=== PATIENT | male | born 2000 | race Hispanic/Latino ===

== ENCOUNTER 2025-05-14 03:55 | Emergency (ER) | payer SELFPAY ==
[~2025-05-14] VITALS: Ht 170.2 cm; Wt 106.3 kg
[2025-05-14 05:22] LABS: NUCLEATED RED BLOOD CELLS 0.0 % (0.0-0.19); PLATELET COUNT (AUTO) 237.0 K/uL (130-400); RED BLOOD CELL COUNT(AUTO) 5.16 MIL/uL (4.50-6.20); RED CELL DISTRIBUTION WIDTH 13.5 % (11.0-15.5); WHITE BLOOD COUNT (AUTO) 9.3 K/uL (4.8-10.8)
--- NOTE | 2025-05-14 05:31 | ERN ---
ED Note History of Present Illness Stated Complaint: LEFT SIDED ABDOMINAL PAIN Chief Complaint: Abdominal Pain Time Seen by MD: 04:11 Dictation: This is a 24-year-old male who presented to the emergency room with complaints of sudden onset of left-sided abdominal pain that started around 3:00 a.m.. Stated that he never felt this kind of a pain and initially it felt like a severe cramping pain. He denied eating any unusual food today. No other family members are sick. No nausea vomitings diarrhea hematemesis or melena. He had a bowel movement today and denied any history of constipation. He denied any fever chills or rigors no dysuria or hematuria. The pain is mostly in the left flank to lower quadrant area Temperature 97.7 pulse 77 respirations 16 blood pressure 121/82 with a pulse oximetry of 95% on room air Allergies: Coded Allergies: No Known Allergies (Unverified Allergy, Unknown, 05/14/25) Past Medical History Past Medical History: No Pertinent History Surgical History: None Family History: Negative Social History: Negative RN Note Reviewed/Agreed w/PFSH: Yes Review of System Dictation Constitutional: Negative for fever,chills, and weight loss Eyes: Negative for injury, pain,redness, and discharge ENT: Negative for injury,pain or swelling Cardiovascular: Negative for chest pain, palpitations, and edema Respiratory: Negative for shortness of breath, cough, and wheezing, Abdomen/GI: Positive for left lower quadrant abdominal pain, denied any nausea, vomiting, diarrhea, and constipation Back: Negative for injury and pain : Negative for injury, bleeding and discharge MS/Extremity: Negative for injury and deformity Skin: Negative for rash, and discoloration Neuro: Negative for headache, weakness, numbness, tingling, and seizure Psych: Negative for suicide ideation, homicidal ideation, and hallucinations Initial Vital Sign VS Vital Signs Date Time Temp Pulse Resp B/P (MAP) Pulse Ox O2 Delivery O2 Flow Rate FiO2 05/14/25 03:56 97.7 77 16 121/82 95 Room Air 0 05/14/25 04:46 21 Physical Exam Dictation General: awake, alert, NAD obese me Head/Face: Normocephalic, atraumatic Eyes: PERRL, EOMI, vision at baseline ENT: oral cavity clear, TMs clear, no signs of infection Neck: Trachea midline, supple, no nuchal rigidity Cardiovascular: RRR, normal S1/S2, No MRGs, no JVD Respiratory: CTAB, no respiratory distress, No rales or wheezes Abdomen: Soft, non-tender, non-distended, normal bowel sounds, no guarding or rebound. Skin: Warm, dry, normal turgor, no rash MS/Extremity: Pulses equal, no cyanosis, neurovascular intact, FROM Neuro: COAx4, GCS 15, strength 5/5, CN 2-12 intact, normal cerebellar exam, normal gait, Psych: Normal behavior, mood, and affect normal Extremities-trace edema without any palpable cords, Homans sign is negative Results (Laboratory/Radiology) Laboratory/Radiology Laboratory Tests Test 05/14/25 05:02 White Blood Count 9.3 K/uL (4.8-10.8) Red Blood Count 5.16 MIL/uL (4.50-6.20) Hemoglobin 15.4 g/dL (14.0-18.0) Hematocrit 45.8 % (42-54) Mean Corpuscular Volume 88.8 fL (79-99) Mean Corpuscular Hemoglobin 29.8 pg (27.0-33.0) Mean Corpuscular Hemoglobin Concent 33.6 g/dL (32.0-36.0) Red Cell Distribution Width 13.5 % (11.0-15.5) Platelet Count 237 K/uL (130-400) Mean Platelet Volume 10.8 fL (7.5-10.5) H Nucleated Red Blood Cells 0.0 % (0.0-0.19) Sodium Level 140 mmol/L (136-145) Potassium Level 3.2 mmol/L (3.5-5.1) L Chloride Level 102 mmol/L (101-111) Carbon Dioxide Level 29 mmol/L (21-32) Blood Urea Nitrogen 8 mg/dL (7-18) Creatinine 0.9 mg/dL (0.5-1.3) Glomerular Filtration Rate Calc 122 mL/min (>90) Random Glucose 107 mg/dL (70-105) H Total Calcium 8.7 mg/dL (8.5-10.1) Amylase Level 80 U/L (25-115) Lipase 69 U/L (16-77) Labs Reviewed?: Yes CT Scan Comment: REASON: left sided sudden abdominal pain, ? renal colic pain . ORDERING PHYSICIAN: CHRISTY PATEL MD PROCEDURE: ABD PELVWO - CT ABD/PEL WO CON RENAL/APPY EXAM: CT Abdomen and Pelvis Without IV contrast CLINICAL HISTORY: left sided sudden abdominal pain, ? renal colic pain . TECHNIQUE: Axial computed tomography images of the abdomen and pelvis without intravenous contrast. CONTRAST: No IV contrast. COMPARISON: None provided. FINDINGS: LUNG BASES: The lung bases appear clear. No pleural effusions are seen. LIVER: Unremarkable. GALLBLADDER AND BILE DUCTS: The gallbladder appears within normal limits. No radioopaque gallstones are seen. No biliary ductal dilatation is evident. PANCREAS: Unremarkable. SPLEEN: Unremarkable. ADRENAL GLANDS: Unremarkable. KIDNEYS, URETERS, AND BLADDER: Small bilateral nonobstructing renal collecting system stones, measuring 1 to 2 mm. No ureteral stones. No hydronephrosis. STOMACH AND BOWEL: Unremarkable appearance of the stomach and bowel. No evidence of bowel obstruction. No evidence suggesting enteritis or colitis. APPENDIX: Normal appendix. PERITONEUM: No free fluid. No free air. LYMPH NODES: No lymphadenopathy is evident. REPRODUCTIVE: Unremarkable as visualized. VASCULATURE: No evidence of abdominal aortic aneurysm. BONES: No aggressive appearing osseous lesion. No acute osseous pathology evident. IMPRESSION: 1. Small bilateral nonobstructing renal collecting system stones, measuring 1 to 2 mm. No ureteral stones. No hydronephrosis. 2. No bowel obstruction or inflammation. Normal appendix. /[place] DICTATED BY: DAREN CESPEDES MD DATE: 05/14/25739 ELECTRONICALLY SIGNED BY: DAREN CESPEDES MD DATE: 05/14/25739 ED Course ED Course Orders Procedure Category Date Status Time Heparin 5,000 Unit PHA 05/14/25 Complete Vial (Heparin 5,000 U 05:30 Heparin 25,000 PHA 05/14/25 Complete Units/250ml D5w 05:30 Cbc Without LAB 05/14/25 Complete Differential 05:12 Basic Metabolic Panel LAB 05/14/25 Complete 05:12 Amylase LAB 05/14/25 Complete 05:12 Lipase LAB 05/14/25 Complete 05:12 Urinalysis Profile LAB 05/14/25 Logged 05:12 Ct Abd/Pel Wo Con CT 05/14/25 Resulted Renal/Appy 05:14 Ketorolac PHA 05/14/25 Complete Tromethamine 30mg/Ml 06:30 Current Medications Medications (Trade) Dose Ordered Sig/Marcus Route PRN Reason Start Time Stop Time Status Last Admin Dose Admin Heparin Sodium (Porcine) (HEParin 5,000 UNIT VIAL) *calculation based on ACTUAL B... AD PRN IV HEPARIN PROTOCOL 05/14/25 05:30 05/14/25 04:53 DC Heparin Sodium/ Dextrose 250 ml @ 0 mls/hr Q6H IV 05/14/25 05:30 05/14/25 04:53 DC Ketorolac Tromethamine (toRADol) 30 mg ONCE ONCE IM 05/14/25 06:30 05/14/25 06:31 DC Vital Signs Date Time Temp Pulse Resp B/P (MAP) Pulse Ox O2 Delivery O2 Flow Rate FiO2 05/14/25 04:46 98.4 82 18 119/71 Room Air* 0 21 05/14/25 03:56 97.7 77 16 121/82 95 Room Air 0 Medical Decision Making MDM Differential diagnosis: Renal colic Gastritis, esophagitis, gastroesophageal reflux disease, acute cholecystitis, peptic ulcer disease, gastroenteritis, colitis, constipation, pancreatitis This is a 24-year-old male who presented to the emergency room with complaints of sudden onset of left-sided abdominal pain that started around 3:00 a.m.. Stated that he never felt this kind of a pain and initially it felt like a severe cramping pain. He denied eating any unusual food today. No other family members are sick. No nausea vomitings diarrhea hematemesis or melena. He had a bowel movement today and denied any history of constipation. He denied any fever chills or rigors no dysuria or hematuria. The pain is mostly in the left flank to lower quadrant area Temperature 97.7 pulse 77 respirations 16 blood pressure 121/82 with a pulse oximetry of 95% on room air CT scan of the abdomen and pelvis reviewed there is no evidence of any hydronephrosis however patient does have bilateral kidney stones measuring 1-2 mm. I updated the patient and family explained to them to keep hydration up and as the kidney stones are small they do not require any acute intervention at this time Rationale: Tests considered and ordered secondary to shared decision making include: CT abdomen and pelvis stone protocol Previous outside records reviewed: Old ER visits. Risk of complication and/or morbidity or mortality of patient management: None Medications-Per medication reconciliation Need for hospitalization: Patient does not meet criteria for hospitalization. Need for emergency major/minor surgery: No There are no social concerns with this patient. Prescription drug management Prescriptions will include symptomatic care Patient's prior external medical records from other ER visits were reviewed by me as indicated. Prior testing and results from previous visits were reviewed. Prior tests were taken into account with medical decision making and resource utilization, independent historian/historians were used to obtain complete medical history. I independently interpreted the test that were performed, results were reviewed by me and considered findings on radiology if ordered. Medical management and examination interpretation discussions were had by me with other qualified healthcare professionals as indicated for the patient's care. Problem List Problem List: (1) Renal colic on left side (2) Bilateral nephrolithiasis DX & DISP Disposition: Discharge Departure Impression: Primary Impression: Renal colic on left side Additional Impression: Bilateral nephrolithiasis Condition: Stable Additional Instructions: Patient and the caregiver have been informed of all the diagnostic tests and the imaging conducted during the today's visit to the emergency room and has verbalized understanding of the results I have personally reviewed and interpreted all diagnostic exams performed here in the ER today as well as the vital signs documented by the nursing staff. The patient is now being discharged to home and should follow up with the primary care physician or the specialist as directed by the ER staff. Extensive counseling on lifestyle modifications, diet exercise and weight loss discussed. CHRISTY PATEL MD May 14, 2025 05:31
[2025-05-14 05:41] LABS: CREATININE 0.9 mg/dL (0.5-1.3); GLOMERULAR FILTR. RATE CALC 122.0 mL/min (>90); GLUCOSE,RANDOM 107.0 mg/dL (70-105); SODIUM SERUM 140.0 mmol/L (136-145); UREA NITROGEN, BLOOD 8.0 mg/dL (7-18)
--- NOTE | 2025-05-14 06:41 | HMCIMG ---
EXAM: CT Abdomen and Pelvis Without IV contrast CLINICAL HISTORY: left sided sudden abdominal pain, ? renal colic pain . TECHNIQUE: Axial computed tomography images of the abdomen and pelvis without intravenous contrast. CONTRAST: No IV contrast. COMPARISON: None provided. FINDINGS: LUNG BASES: The lung bases appear clear. No pleural effusions are seen. LIVER: Unremarkable. GALLBLADDER AND BILE DUCTS: The gallbladder appears within normal limits. No radioopaque gallstones are seen. No biliary ductal dilatation is evident. PANCREAS: Unremarkable. SPLEEN: Unremarkable. ADRENAL GLANDS: Unremarkable. KIDNEYS, URETERS, AND BLADDER: Small bilateral nonobstructing renal collecting system stones, measuring 1 to 2 mm. No ureteral stones. No hydronephrosis. STOMACH AND BOWEL: Unremarkable appearance of the stomach and bowel. No evidence of bowel obstruction. No evidence suggesting enteritis or colitis. APPENDIX: Normal appendix. PERITONEUM: No free fluid. No free air. LYMPH NODES: No lymphadenopathy is evident. REPRODUCTIVE: Unremarkable as visualized. VASCULATURE: No evidence of abdominal aortic aneurysm. BONES: No aggressive appearing osseous lesion. No acute osseous pathology evident. IMPRESSION: 1. Small bilateral nonobstructing renal collecting system stones, measuring 1 to 2 mm. No ureteral stones. No hydronephrosis. 2. No bowel obstruction or inflammation. Normal appendix. /[place]
[2025-05-14 07:17] VITALS: BP 124/70; PULSE 78; RESP 18; TEMP 98.3; O2SAT 95
== END 2025-05-14 07:45 | disposition home or self-care (01) ==
LOC: EDH 03:55
DX: N20.0 Calculus of kidney (principal)
CPT/HCPCS: 36415; 74176; 80048; 82150; 83690; 85027; 99284; J1885